=== PATIENT | male | born 1940 | race Caucasian/White ===

== ENCOUNTER 2017-01-08 11:19 | Inpatient (IN) | payer MEDICARE, OTHER ==
[~2017-01-08] VITALS: Ht 170.2 cm; Wt 56.7 kg
--- NOTE | ~2017-01-08 | HP ---
History And Physical [address] [place]. [address] NAME: RUTHIE VALADEZ : 36 STATUS : ADM IN [facility]#: [id number] AGE: 76 ADM/REG DATE : 01/08/17 MR#: [id number] REPORT SERV DATE: 01/09/17 DICTATED BY: JOSE ALFREDO BOLIVAR DATE: 01/09/17 REPORT STATUS : Draft TRANSCRIBED BY: MODCarlos DATE: 01/09/17 DATE OF ADMISSION: 01/08/2017 CHIEF COMPLAINT: This is a 76-year-old gentleman who presents from the [facility] with poor oral intake, dyspnea, and weight loss. HISTORY OF PRESENT ILLNESS: He had a gradual onset of declining oral food intake and increasing lethargy and had noticed several pounds of weight loss over the past week and was sent to the emergency room for evaluation where he was found to have a significant urinary infection and possible left lower lobe pneumonia. REVIEW OF SYSTEMS: He has had some chills. No known fever. No nausea, vomiting, diarrhea, or cough, increasing weakness and somnolence, but denies any specific area of pain, but does complain of feeling bad allover. When he presented to the emergency room, he was only responsive to verbal stimuli by opening eyes and is more alert after overnight IV fluids. PAST MEDICAL HISTORY: Includes dementia with psychotic features, bipolar disorder, ataxia, Parkinson disease, osteoporosis, osteoarthritis, COPD, hyperlipidemia, gastroesophageal reflux disorder, and a history in the past of pneumonia. ALLERGIES: NO KNOWN DRUG ALLERGIES. CURRENT MEDICATIONS: Include DuoNeb inhaler t.i.d., BuSpar 5 mg b.i.d., Caltrate 600 mg b.i.d., Prolia injections biannually, Valium 2 mg q.8 hours p.r.n., Depakote Sprinkles 500 mg b.i.d., Haldol 1 mg b.i.d., Namenda XR 28 mg daily, Remeron 7.5 mg at bedtime, Exelon 6 mg b.i.d., Zocor 20 mg at bedtime, and Lantiseptic cream topical b.i.d. p.r.n. CODE STATUS: Do not resuscitate, the patient does not wish to change this. SOCIAL HISTORY: He is with no children. His cousin, Cynthia Barry, is his power of regulatory attorney. He is a nonsmoker and nondrinker and has been a resident at the [facility] for a number of years. PHYSICAL EXAMINATION: VITAL SIGNS: Afebrile at 98.2, pulse 78 and regular, respirations 14 and unlabored, and BP 128/76. GENERAL: He is alert and oriented to person and somewhat to place. He is pleasant, but fatigues easily. SKIN: Pale, moist, and no breakdown noted. HEAD AND NECK: Cranial nerves grossly intact. Nose and throat patent. Mucous membranes moist. Edentulous. Neck: Supple. No mass. No JVD. CHEST: With diminished breath sounds diffusely. No active wheezing heard. HEART: Regular rate and rhythm without murmur. Fair peripheral pulses. ABDOMEN: Supple, nontender, nondistended. No palpable mass. Bowel sounds hypoactive. GENITOURINARY AND RECTAL: Deferred. History And Physical [address] [address] NAME: RUTHIE VALADEZ : 36 STATUS : ADM IN [facility]#: [id number] AGE: 76 ADM/REG DATE : 01/08/17 MR#: [id number] REPORT SERV DATE: 01/09/17 DICTATED BY: JOSE ALFREDO BOLIVAR DATE: 01/09/17 REPORT STATUS : Draft TRANSCRIBED BY: CHANTELL DATE: 01/09/17 EXTREMITIES: Good range of motion with moderate arthritic changes diffusely. No peripheral edema. NEUROLOGIC: Grossly intact to sensory and motor with no tremors present. Unable to sit up by himself. No palpable cervical or axillary lymph nodes. LABORATORY DATA: WBC 24,100, H and H are 15 and 43.8. Sodium 136, potassium 4.9, BUN 10, creatinine 1.25, glucose 94. Urine with a very large number of white cells and bacteria, nitrite positive. Liver enzymes in normal range. Lactate level 2.4. Chest x-ray with left lower lobe showing possible infiltrates. IMPRESSION: 1. Sepsis on admission as evidenced by altered mental status, weight loss, and multiple infections. 2. Urinary infection. 3. Early pneumonia, expect after hydration to see more clearly on the x-ray. 4. Weight loss, multifactorial. 5. Dementia with psychotic features. 6. Bipolar disorder. 7. Chronic obstructive pulmonary disease. 8. Gastroesophageal reflux disease. 9. Hyperlipidemia. PLAN: IV cefepime until cultures say otherwise, continue DNR status, IV hydration with electrolyte protocol. Advance diet from clear liquids to his baseline of pureed with chopped meat, DVT prophylaxis while hospitalized, and recheck lab and chest x-ray in the morning. BP/MODL Jose Alfredo Bolivar M.D. / [id number] CC: Jose Alfredo Bolivar M.D. NO PCP
[~2017-01-08 11:19] MED LIST: ATV.5 PO; D.O.S.100 MG PO; DEPAKOTE 125 M125 MG PO; DUONEB INH; EXELON9.5T TOP; FLEXERIL5 MG PO; H2 PO; H5 PO; HYDROCORT12 EX; LIDODERM T; LORTAB 5 PO; METROGEL1 % TOP; MEVACOR PO; MEVACOR40 MG PO; MOBIC7.5 PO; MYCOSCROI TOP; MYCOSOINT TOP; NAMENDA10 MG PO; NEXIUM20 MG PO; NORCO1 TA1 PO; NYSTOP100000 MG TOP; OMNICEF300 PO; PEG 3350; PEP20 PO; PRILO PO; T PO; THIORIDAZINE OR; ZOCOR40 PO; ZOLOFT25 MG PO; [UNRECOGNIZED DRUG - OTHER] TOP; [UNRECOGNIZED DRUG - OTHER] TOP
[2017-01-08 12:19] LABS: BASOPHILS 0.1 %; BASOPHILS ABSOLUTE 0.02 10/3/uL (0.0-0.16); EOSINOPHILS 0 %; EOSINOPHILS ABSOLUTE 0.01 10/3/uL (0.0-0.53); IMMATURE GRANULOCYTES 0.7 %; LYMPHOCYTES 4.7 %; LYMPHOCYTES ABSOLUTE 1.13 10/3/uL (0.67-4.30); MEAN CORPUSCULAR HEMOGLOB 29.6 pg (26.0-34.0); MONOCYTES 8.9 %; MONOCYTES ABSOLUTE 2.15 10/3/uL (0.21-1.20); NEUTROPHILS 85.6 %; NEUTROPHILS ABSOLUTE 20.65 10/3/uL (2.02-8.40); NUCLEATED RED BLOOD CELLS 0.8 /100WBC (0-0); PLATELET COUNT 242 10/3/uL (150-400); RBC DISTRIBUTION WIDTH 17.5 % (12.0-16.0)
[2017-01-08 12:21] LABS: ER CBC TAT 0 Hrs 09 Mins; HEMATOCRIT 43.8 % (40.0-51.0); IMMATURE GRANULOCYTES ABSOLUTE 0.16 10/3/uL (0.0-0.11); MANUAL DIFF NO %; MEAN CORPUS HGB CONC 34.2 g/dL (32.0-36.0); MEAN CORPUSCULAR VOLUME 86.6 fL (80-100); RED CELL COUNT 5.06 10/6/uL (4.7-6.1); WHITE BLOOD CELLS 24.1 10/3/uL (4.5-10.5)
[2017-01-08 12:23] LABS: INTERNATIONAL NORMAL RATI 1.1 UNITS (-); PROTIME (NOT ORD) 13.6 SEC (12.0-14.5)
[2017-01-08 12:34] LABS: A/G RATIO 0.5 (0.7-1.9); ALBUMIN 2.4 G/DL (3.5-5.0); ALKALINE PHOSPHATASE 70 U/L (45-117); CALCIUM, SERUM 8.3 MG/DL (8.5-10.4); CHLORIDE, SERUM 104 MMOL/L (96-112); CO2 (CARBON DIOXIDE) 24 MMOL/L (24-34); GLOBULIN 4.8 G/DL (2.5-4.1); GLUCOSE, SERUM 94 MG/DL (60-99); SGPT(ALT) 18 U/L (5-65); SODIUM, SERUM 136 MMOL/L (135-148); TOTAL PROTEIN 7.2 G/DL (6.0-8.5)
[2017-01-08 12:36] LABS: BUN (BLOOD UREA NITROGEN) 10 MG/DL (6-23); CREATININE 1.25 MG/DL (0.70-1.30); GFR AFRICAN AMERICAN 64 ML/MIN (>=60); GFR NON AFRICAN AMERICAN 55 ML/MIN (>=60); POTASSIUM, SERUM 4.9 MMOL/L (3.5-5.3); SGOT(AST) 19 U/L (5-40); TOTAL BILIRUBIN 0.9 MG/DL (0-1.2)
[2017-01-08 12:39] LABS: BAND NEUTROPHILS 10 %; ER DIFF TAT 0 Hrs 27 Mins; LYMPHOCYTES 5 %; LYMPHOCYTES ABSOLUTE (CALC) 1.21 10/3/uL (0.67-4.30); MONOCYTES 7 %; MONOCYTES ABSOLUTE (CALC) 1.69 10/3/uL (0.21-1.20); NEUTROPHILS ABSOLUTE (CALC) 21.21 10/3/uL (2.02-8.40); SEGMENTED NEUTROPHIL (0) 78 %; TOTAL NUCLEATED CELLS 100
[2017-01-08 12:40] LABS: ANISOCYTOSIS 1+ (5-10/OIF) (0-5/OIF); PLATELET ESTIMATE ADQ (ADEQUATE); TOXIC GRANULATION 1+; VACUOLATED NEUTROPHILES OCC
[2017-01-08 13:00] LABS: ASCORBIC ACID (UR NOT ORDER) NEG (NEG); BILIRUBIN, URINE NEGATIVE (NEG); ER URINALYSIS TAT 0 Hrs 19 Mins; KETONE, URINE 20 MG/DL (NEG); LEUKOCYTE ESTERASE(NOT OR LARGE (NEG); NITRITE (URINE) POS (NEG); WBC (NOT ORDERED) (RFLEX) > 182 (0-5)
[2017-01-08] MEDS ORDERED: NAMENXR28 PO (13:40)
[2017-01-08] MEDS ORDERED: EXELON6 MG PO (13:40)
[2017-01-08] MEDS ORDERED: [UNRECOGNIZED DRUG - OTHER] TOP (13:41)
[2017-01-08] MEDS ORDERED: CALTRA600D PO (13:41)
[2017-01-08] MEDS ORDERED: ZOCOR20 PO (13:42)
[2017-01-08] MEDS ORDERED: BUSPAR5 PO (13:42)
[2017-01-08] MEDS ORDERED: PROLIA60 MG/1 ML SC (13:42)
[2017-01-08] MEDS ORDERED: H1 PO (13:43)
[2017-01-08] MEDS ORDERED: DUONEB INH (13:43)
[2017-01-08] MEDS ORDERED: DEPASPRINK PO (13:43)
[2017-01-08] MEDS ORDERED: REM15 PO (13:44)
[2017-01-08] MEDS ORDERED: V2 PO (13:44)
[2017-01-08 14:02] LABS: LACTATE 2.4 MMOL/L (0.3-2.4)
[2017-01-10 05:42] LABS: BASOPHILS 0.2 %; BASOPHILS ABSOLUTE 0.02 10/3/uL (0.0-0.16); EOSINOPHILS 1.7 %; EOSINOPHILS ABSOLUTE 0.19 10/3/uL (0.0-0.53); HEMOGLOBIN 12.8 g/dL (13.6-17.8); IMMATURE GRANULOCYTES 0.5 %; IMMATURE GRANULOCYTES ABSOLUTE 0.05 10/3/uL (0.0-0.11); LYMPHOCYTES 18.5 %; LYMPHOCYTES ABSOLUTE 2.04 10/3/uL (0.67-4.30); MEAN CORPUS HGB CONC 33.4 g/dL (32.0-36.0); MEAN CORPUSCULAR HEMOGLOB 28.8 pg (26.0-34.0); MEAN CORPUSCULAR VOLUME 86.3 fL (80-100); MEAN PLATELET VOLUME 9.5 fL (9.2-13.0); MONOCYTES 8.9 %; MONOCYTES ABSOLUTE 0.98 10/3/uL (0.21-1.20); NEUTROPHILS 70.2 %; NEUTROPHILS ABSOLUTE 7.75 10/3/uL (2.02-8.40); PLATELET COUNT 254 10/3/uL (150-400); RBC DISTRIBUTION WIDTH 17.4 % (12.0-16.0); RED CELL COUNT 4.44 10/6/uL (4.7-6.1)
[2017-01-10 05:45] LABS: HEMATOCRIT 38.3 % (40.0-51.0); MANUAL DIFF NO %
[2017-01-10 05:52] LABS: BUN (BLOOD UREA NITROGEN) 10 MG/DL (6-23); CALCIUM, SERUM 8.1 MG/DL (8.5-10.4); CHLORIDE, SERUM 103 MMOL/L (96-112); CO2 (CARBON DIOXIDE) 28 MMOL/L (24-34); GFR AFRICAN AMERICAN 107 ML/MIN (>=60); GFR NON AFRICAN AMERICAN 93 ML/MIN (>=60); GLUCOSE, SERUM 85 MG/DL (60-99); SODIUM, SERUM 139 MMOL/L (135-148)
[2017-01-10 05:55] LABS: CREATININE 0.66 MG/DL (0.70-1.30); POTASSIUM, SERUM 3.2 MMOL/L (3.5-5.3)
[2017-01-11 05:54] LABS: BASOPHILS 0.1 %; BASOPHILS ABSOLUTE 0.01 10/3/uL (0.0-0.16); EOSINOPHILS 2.1 %; EOSINOPHILS ABSOLUTE 0.18 10/3/uL (0.0-0.53); HEMOGLOBIN 12.6 g/dL (13.6-17.8); IMMATURE GRANULOCYTES 0.6 %; IMMATURE GRANULOCYTES ABSOLUTE 0.05 10/3/uL (0.0-0.11); LYMPHOCYTES 24.6 %; LYMPHOCYTES ABSOLUTE 2.15 10/3/uL (0.67-4.30); MANUAL DIFF NO %; MEAN CORPUS HGB CONC 34.1 g/dL (32.0-36.0); MEAN CORPUSCULAR HEMOGLOB 29.4 pg (26.0-34.0); MEAN CORPUSCULAR VOLUME 86.2 fL (80-100); MEAN PLATELET VOLUME 9.5 fL (9.2-13.0); MONOCYTES 13.7 %; NEUTROPHILS 58.9 %; NEUTROPHILS ABSOLUTE 5.14 10/3/uL (2.02-8.40); PLATELET COUNT 243 10/3/uL (150-400); RBC DISTRIBUTION WIDTH 17.3 % (12.0-16.0); RED CELL COUNT 4.29 10/6/uL (4.7-6.1); WHITE BLOOD CELLS 8.7 10/3/uL (4.5-10.5)
[2017-01-11 06:03] LABS: CALCIUM, SERUM 8.1 MG/DL (8.5-10.4); CHLORIDE, SERUM 105 MMOL/L (96-112); CO2 (CARBON DIOXIDE) 26 MMOL/L (24-34); CREATININE 0.71 MG/DL (0.70-1.30); GFR AFRICAN AMERICAN 104 ML/MIN (>=60); GFR NON AFRICAN AMERICAN 90 ML/MIN (>=60); GLUCOSE, SERUM 86 MG/DL (60-99); SODIUM, SERUM 139 MMOL/L (135-148)
[2017-01-11 06:05] LABS: BUN (BLOOD UREA NITROGEN) 4 MG/DL (6-23)
== END 2017-01-12 21:00 | DRG 871 ==
LOC: ER 11:19 → 5SO 16:45
PROVIDERS: Emergency Medicine; Family Medicine
DX: A41.9 Sepsis, unspecified organism (principal); J18.9 Pneumonia, unspecified organism; F03.90 Unspecified dementia, unspecified severity, without behavioral disturbance, psychotic disturbance, mood disturbance, and anxiety; G20 Parkinson's disease; N39.0 Urinary tract infection, site not specified; F31.9 Bipolar disorder, unspecified; J44.9 Chronic obstructive pulmonary disease, unspecified; K21.9 Gastro-esophageal reflux disease without esophagitis; E78.5 Hyperlipidemia, unspecified; Z66 Do not resuscitate; F02.80 Dementia in other diseases classified elsewhere, unspecified severity, without behavioral disturbance, psychotic disturbance, mood disturbance, and anxiety; M81.0 Age-related osteoporosis without current pathological fracture; M19.90 Unspecified osteoarthritis, unspecified site; B96.20 Unspecified Escherichia coli [E. coli] as the cause of diseases classified elsewhere; Z87.01 Personal history of pneumonia (recurrent); Z79.899 Other long term (current) drug therapy
CPT/HCPCS: 71010; 80048; 80053; 81001; 83605; 85025; 85610; 87040; 87077; 87086; 87186; 93005; 94640; 96374; 99285; A9270-GY; J0692